=== PATIENT | female | born 1945 | race American Indian/Alaskan Native ===

== ENCOUNTER 2017-06-01 12:06 | Emergency (ER) | payer MEDICARE ==
[2017-06-01] MEDS ORDERED: CLEOCIN IM ONE (16:31)
[2017-06-01] MEDS ORDERED: MOTRIN PO ONE (16:32)
--- NOTE | 2017-06-01 16:42 | Emergency Department Report ---
ED ENT HPI - General Chief complaint: Dental/Oral Stated complaint: FACE SWOLLEN Time Seen by Provider: 06/01/17 16:25 Source: patient Mode of arrival: Ambulatory Limitations: No Limitations - History of Present Illness Initial comments: Pt reports facial swelling x 3 days. No fever. States she also has a sore in her nose. MD complaint: tooth pain, other (facial swelling) -: Gradual, days(s) (3) Location: tooth # (30) Severity: moderate Severity scale (0 -10): 5 Quality: stabbing Consistency: constant Improves with: none Worsens with: none Context- Dental: history of dental caries, poor dental care Associated Symptoms: toothache. denies: fever, sore throat - Related Data Previous Rx's Medication Instructions Recorded Last Taken Type Clindamycin [Clindamycin CAP] 300 mg PO Q6HR #80 capsule 06/01/17 Unknown Rx Ibuprofen [Motrin 800 MG tab] 800 mg PO TID #20 tablet 06/01/17 Unknown Rx Allergies Allergy/AdvReac Type Severity Reaction Status Date / Time No Known Allergies Allergy Unverified 06/01/17 12:12 ED Dental HPI - General Chief complaint: Dental/Oral Stated complaint: FACE SWOLLEN Time Seen by Provider: 06/01/17 16:25 Source: patient Mode of arrival: Ambulatory Limitations: No Limitations - Related Data Previous Rx's Medication Instructions Recorded Last Taken Type Clindamycin [Clindamycin CAP] 300 mg PO Q6HR #80 capsule 06/01/17 Unknown Rx Ibuprofen [Motrin 800 MG tab] 800 mg PO TID #20 tablet 06/01/17 Unknown Rx Allergies Allergy/AdvReac Type Severity Reaction Status Date / Time No Known Allergies Allergy Unverified 06/01/17 12:12 ED Review of Systems ROS: Stated complaint: FACE SWOLLEN Other details as noted in HPI Comment: All other systems reviewed and negative Constitutional: denies: chills, fever Eyes: denies: eye pain, eye discharge, vision change ENT: dental pain. denies: ear pain, throat pain Respiratory: denies: cough, shortness of breath, wheezing Cardiovascular: denies: chest pain, palpitations Endocrine: no symptoms reported Gastrointestinal: denies: abdominal pain, nausea, diarrhea Genitourinary: denies: urgency, dysuria, discharge Musculoskeletal: denies: back pain, joint swelling, arthralgia Skin: denies: rash, lesions Neurological: denies: headache, weakness, paresthesias Psychiatric: denies: anxiety, depression Hematological/Lymphatic: denies: easy bleeding, easy bruising ED Past Medical Hx - Past Medical History Previous Medical History?: Yes Hx Hypertension: Yes (non compliant with meds) - Surgical History Past Surgical History?: Yes Additional Surgical History: Left knee surgery, Right ankle repair with instrumentation - Social History Smoking Status: Former Smoker Substance Use Type: Non Opiate Pain, Other - Medications Home Medications: Home Medications Medication Instructions Recorded Confirmed Last Taken Type Clindamycin [Clindamycin CAP] 300 mg PO Q6HR #80 capsule 06/01/17 Unknown Rx Ibuprofen [Motrin 800 MG tab] 800 mg PO TID #20 tablet 06/01/17 Unknown Rx ED Physical Exam - General Limitations: No Limitations General appearance: alert, in no apparent distress - Head Head exam: Present: atraumatic, normocephalic - Eye Eye exam: Present: normal appearance - ENT ENT exam: Present: mucous membranes moist, other (Nasal mucosa mildly inflamed. ) - Expanded ENT Exam Expanded Mouth exam: Absent: drooling, trismus Teeth exam: Present: dental caries, dental tenderness # (20, with associated localized facial swelling immediately adjacent. ) Throat exam: Positive: normal inspection - Neck Neck exam: Present: normal inspection - Respiratory Respiratory exam: Present: normal lung sounds bilaterally. Absent: respiratory distress - Cardiovascular Cardiovascular Exam: Present: regular rate, normal rhythm. Absent: systolic murmur, diastolic murmur, rubs, gallop - GI/Abdominal GI/Abdominal exam: Present: soft, normal bowel sounds - Extremities Exam Extremities exam: Present: normal inspection - Back Exam Back exam: Present: normal inspection - Neurological Exam Neurological exam: Present: alert, oriented X3 - Psychiatric Psychiatric exam: Present: normal affect, normal mood - Skin Skin exam: Present: warm, dry, intact, normal color. Absent: rash ED Course Vital Signs 06/01/17 06/01/17 06/01/17 12:08 12:12 16:45 Temperature 98.6 F Pulse Rate 80 83 Respiratory 16 18 Rate Blood Pressure 172/89 172/89 172/103 Blood Pressure [Left] O2 Sat by Pulse 16 L 94 Oximetry 06/01/17 16:48 Temperature 98.4 F Pulse Rate 76 Respiratory 18 Rate Blood Pressure Blood Pressure 172/103 [Left] O2 Sat by Pulse 96 Oximetry - Reevaluation(s) Reevaluation #1: 06/01/17 16:40 Pt is in NAD and stable for d/c. ED Medical Decision Making - Medical Decision Making Pt with dental abscess without airway compromise or neck swelling. Will give Cleocin IM and have her follow up with dentist this week. Pt noncompliant with BP meds- I advised compliance and following with PCP. - Differential Diagnosis dental abscess, sialadenitis, cellulitis Critical care attestation.: If time is entered above; I have spent that time in minutes in the direct care of this critically ill patient, excluding procedure time. ED Disposition Clinical Impression: Dental abscess, Elevated blood pressure reading Disposition: TO HOME OR SELFCARE Is pt being admited?: No Condition: Stable Instructions: Dental Abscess (ED) Prescriptions: Clindamycin [Clindamycin CAP] 300 mg PO Q6HR #80 capsule Ibuprofen [Motrin 800 MG tab] 800 mg PO TID #20 tablet Referrals: PRIMARY CARE, [Primary Care Provider] - 3-5 Days DENNIS CASTAÑEDA DDS [Staff Physician] - 3-5 Days Time of Disposition: 16:44
[2017-06-01 18:28] VITALS: BP 192/102
== END 2017-06-01 18:27 | disposition home or self-care (01) ==
LOC: ED 12:06
DX: K04.7 Periapical abscess without sinus (principal); I10 Essential (primary) hypertension; Z87.891 Personal history of nicotine dependence
CPT/HCPCS: 96372; 99282